=== PATIENT | female | born 1960 | race African-American/Black ===

== ENCOUNTER → 2021-11-22 | Outpatient (CLI) | payer MEDICARE, MEDICAID ==
[~2021-11-22] MED LIST: AMLO5TAB OR; DICL0.1S7 TOP; IMIT100T OR; LIDO5DIS TD; LIPI10TA OR; LYRI75CA OR; VICO5TAB PO; VOLT1GEL EXT
== END ==
LOC: M RAD 12:23
PROVIDERS: ATTEND Physician Assistant
DX: E04.1 Nontoxic single thyroid nodule (principal)

== ENCOUNTER → 2022-04-13 | Outpatient (REF) | payer MEDICARE, MEDICAID | LOC: M LAB REF 17:22 | PROVIDERS: ATTEND Internal Medicine Endocrinology, Diabetes & Metabolism | DX: E04.2 Nontoxic multinodular goiter (principal) ==

== ENCOUNTER → 2022-07-12 | Outpatient (CLI) | payer MEDICARE, MEDICAID | LOC: M RAD 11:05 | PROVIDERS: ATTEND Family Medicine Addiction Medicine | DX: M54.50 Low back pain, unspecified (principal) ==

== ENCOUNTER → 2022-08-09 | Outpatient (CLI) | payer MEDICARE, MEDICAID ==
[~2022-08-09] MED LIST changes: +ISOVUE-370 76% 100ML VIAL As Ordered ONE
== END ==
LOC: M RAD 10:02
PROVIDERS: ATTEND Otolaryngology
DX: R22.1 Localized swelling, mass and lump, neck (principal)
CPT/HCPCS: 70491; Q9967

== ENCOUNTER → 2022-09-11 | Outpatient (REF) | payer MEDICARE, MEDICAID ==
[~2022-09-11] MED LIST changes: -ISOVUE-370 76% 100ML VIAL As Ordered ONE
[2022-09-11 14:03] LABS: FOLATE 21.6 NG/ML (>5.4); THYROID STIMULATING HORMONE 1.762 uIU/ML (0.55-4.78); TOTAL 25(OH) VITAMIN D 9.7 NG/ML (20.0-100.0)
[2022-09-11 14:04] LABS: VITAMIN B12 LEVEL 623 PG/ML (211-911)
[2022-09-11 14:28] LABS: HIV 1&2 SCREEN ATELLICA NEGATIVE (NEGATIVE)
[2022-09-11 14:34] LABS: ALBUMIN 4.6 G/DL (3.2-5.2); ALKALINE PHOSPHATASE 124 U/L (46-116); ALT/SGPT 12 U/L (7.0-40); AST/SGOT 15 U/L (<34); BILIRUBIN,TOTAL 0.5 MG/DL (0.3-1.2); BLOOD UREA NITROGEN 16 MG/DL (9-23); CALCIUM LEVEL 9.7 MG/DL (8.3-10.6); CARBON DIOXIDE LEVEL 25 MMOL/L (20-31); CHLORIDE LEVEL 105 MMOL/L (98-107); CHOLESTEROL LEVEL 216 MG/DL (<200); CHOLESTEROL RISK RATIO 3.03 (<5); CREATININE FOR GFR 0.82 MG/DL (0.55-1.30); GLOMERULAR FILTRATION RATE > 60.0 (>45); GLUCOSE, FASTING 89 MG/DL (74-106); HDL CHOLESTEROL 71.1 MG/DL (>40); LDL CHOLESTEROL 132.7 MG/DL (<100); NON-HDL-C 144.9 MG/DL; POTASSIUM SERUM 3.8 MMOL/L (3.5-5.1); SODIUM LEVEL 138 MMOL/L (136-145); TOTAL PROTEIN 8.3 G/DL (5.7-8.2); TRIGLYCERIDES LEVEL 61 MG/DL (<150)
== END ==
LOC: M LAB REF 12:24
PROVIDERS: ATTEND Family Medicine Addiction Medicine
DX: Z13.228 Encounter for screening for other metabolic disorders (principal); Z11.4 Encounter for screening for human immunodeficiency virus [HIV]; I10 Essential (primary) hypertension

== ENCOUNTER → 2022-12-21 | Outpatient (REF) | payer MEDICARE, MEDICAID ==
[2022-12-21 18:27] LABS: ALBUMIN 4.3 G/DL (3.2-5.2); ALKALINE PHOSPHATASE 122 U/L (46-116); ALT/SGPT 15 U/L (7.0-40); AST/SGOT 21 U/L (<34); BILIRUBIN,TOTAL 0.5 MG/DL (0.3-1.2); BLOOD UREA NITROGEN 15 MG/DL (9-23); CALCIUM LEVEL 9.9 MG/DL (8.3-10.6); CARBON DIOXIDE LEVEL 29 MMOL/L (20-31); CHLORIDE LEVEL 101 MMOL/L (98-107); CHOLESTEROL LEVEL 206 MG/DL (<200); CHOLESTEROL RISK RATIO 2.83 (<5); CREATININE FOR GFR 0.82 MG/DL (0.55-1.30); GLOMERULAR FILTRATION RATE > 60.0 (>45); GLUCOSE, FASTING 80 MG/DL (74-106); HDL CHOLESTEROL 72.7 MG/DL (>40); LDL CHOLESTEROL 115.3 MG/DL (<100); NON-HDL-C 133.3 MG/DL; SODIUM LEVEL 139 MMOL/L (136-145); THYROID STIMULATING HORMONE 4.284 uIU/ML (0.55-4.78); TRIGLYCERIDES LEVEL 90 MG/DL (<150)
== END ==
LOC: M LAB REF 17:31
PROVIDERS: ATTEND Family Medicine Addiction Medicine
DX: I10 Essential (primary) hypertension (principal)

== ENCOUNTER → 2023-02-13 | Outpatient (REF) | payer MEDICARE, MEDICAID | LOC: M SFHCWAGY 13:25 | PROVIDERS: ATTEND Nurse Practitioner Family | DX: Z12.4 Encounter for screening for malignant neoplasm of cervix (principal) | CPT/HCPCS: 87624; G0123 ==

== ENCOUNTER → 2023-02-14 | Outpatient (CLI) | payer MEDICARE, MEDICAID ==
[~2023-02-14] MED LIST changes: +ISOVUE-370 76% 100ML VIAL As Ordered ONE
== END ==
LOC: M RAD 08:52
PROVIDERS: ATTEND Otolaryngology
DX: K11.20 Sialoadenitis, unspecified (principal); E04.2 Nontoxic multinodular goiter; J34.9 Unspecified disorder of nose and nasal sinuses
CPT/HCPCS: 70491; Q9967

== ENCOUNTER → 2023-06-11 | Outpatient (REF) | payer MEDICARE, MEDICAID ==
[~2023-06-11] MED LIST changes: -ISOVUE-370 76% 100ML VIAL As Ordered ONE
[2023-06-11 13:15] LABS: ALBUMIN 4.2 G/DL (3.2-5.2); ALKALINE PHOSPHATASE 112 U/L (46-116); ALT/SGPT 14 U/L (7.0-40); AST/SGOT 22 U/L (<34); BILIRUBIN,TOTAL 0.5 MG/DL (0.3-1.2); BLOOD UREA NITROGEN 10 MG/DL (9-23); CALCIUM LEVEL 9.8 MG/DL (8.3-10.6); CARBON DIOXIDE LEVEL 30 MMOL/L (20-31); CHLORIDE LEVEL 104 MMOL/L (98-107); CHOLESTEROL LEVEL 200 MG/DL (<200); CHOLESTEROL RISK RATIO 2.64 (<5); CREATININE FOR GFR 0.72 MG/DL (0.55-1.30); GLOMERULAR FILTRATION RATE > 60.0 (>45); GLUCOSE, FASTING 87 MG/DL (74-106); HDL CHOLESTEROL 75.7 MG/DL (>40); LDL CHOLESTEROL 108.7 MG/DL (<100); NON-HDL-C 124.3 MG/DL; POTASSIUM SERUM 3.9 MMOL/L (3.5-5.1); SODIUM LEVEL 139 MMOL/L (136-145); TOTAL PROTEIN 7.8 G/DL (5.7-8.2); TRIGLYCERIDES LEVEL 78 MG/DL (<150)
[2023-06-11 13:16] LABS: THYROID STIMULATING HORMONE 4.148 uIU/ML (0.55-4.78)
== END ==
LOC: M LAB REF 12:07
PROVIDERS: ATTEND Family Medicine Addiction Medicine
DX: E78.5 Hyperlipidemia, unspecified (principal)

== ENCOUNTER → 2023-08-24 | Outpatient (REF) | payer MEDICARE, MEDICAID ==
[2023-08-24 12:52] LABS: BASO # 0.1 10^3/uL (0.0-0.2); BASO % 0.7 % (0.0-1.0); EOS # 0.4 10^3/uL (0.0-0.5); EOS % 5.9 % (0.0-3.0); HEMATOCRIT 35.5 % (36.0-47.0); HEMOGLOBIN 11.5 g/dl (12.0-15.5); LYMPH # 2.2 10^3/uL (1.5-5.0); LYMPH % 29.2 % (24.0-44.0); MEAN CORPUSCULAR HEMOGLOBIN 29.3 pg (27.0-33.0); MEAN CORPUSCULAR HGB CONC 32.4 g/dl (32.0-36.5); MEAN CORPUSCULAR VOLUME 90.3 fl (80.0-96.0); MONO # 0.5 10^3/uL (0.0-0.8); MONO % 7.2 % (2.0-8.0); NEUTROPHILS # 4.2 10^3/uL (1.5-8.5); NEUTROPHILS % 56.9 % (36.0-66.0); PLATELET COUNT, AUTOMATED 328 10^3/uL (150-450); RED BLOOD COUNT 3.93 10^6/uL (4.00-5.40); WHITE BLOOD COUNT 7.4 10^3/uL (4.0-10.0)
[2023-08-24 13:32] LABS: ALBUMIN 4.2 G/DL (3.2-5.2); ALKALINE PHOSPHATASE 113 U/L (46-116); ALT/SGPT 23 U/L (7.0-40); AST/SGOT 24 U/L (<34); BILIRUBIN,TOTAL 0.5 MG/DL (0.3-1.2); BLOOD UREA NITROGEN 10 MG/DL (9-23); CALCIUM LEVEL 10.4 MG/DL (8.3-10.6); CARBON DIOXIDE LEVEL 32 MMOL/L (20-31); CHLORIDE LEVEL 102 MMOL/L (98-107); CHOLESTEROL LEVEL 190 MG/DL (<200); CHOLESTEROL RISK RATIO 2.34 (<5); CREATININE FOR GFR 0.64 MG/DL (0.55-1.30); FREE T4 1.23 NG/DL (0.89-1.76); GLOMERULAR FILTRATION RATE > 60.0 (>45); GLUCOSE, FASTING 87 MG/DL (74-106); HDL CHOLESTEROL 81.1 MG/DL (>40); LDL CHOLESTEROL 98.3 MG/DL (<100); NON-HDL-C 108.9 MG/DL; POTASSIUM SERUM 3.8 MMOL/L (3.5-5.1); SODIUM LEVEL 139 MMOL/L (136-145); THYROID STIMULATING HORMONE 2.581 uIU/ML (0.55-4.78); TOTAL PROTEIN 7.9 G/DL (5.7-8.2); TRIGLYCERIDES LEVEL 53 MG/DL (<150); VITAMIN B12 LEVEL 818 PG/ML (211-911)
== END ==
LOC: M LAB REF 11:55
PROVIDERS: ATTEND Family Medicine Addiction Medicine
DX: R94.6 Abnormal results of thyroid function studies (principal); R20.2 Paresthesia of skin; Z79.899 Other long term (current) drug therapy

== ENCOUNTER → 2023-09-05 | Outpatient (REF) | payer MEDICARE, MEDICAID | LOC: M LAB REF 12:29 | PROVIDERS: ATTEND Family Medicine Addiction Medicine | DX: D64.9 Anemia, unspecified (principal); E55.9 Vitamin D deficiency, unspecified ==

== ENCOUNTER → 2023-09-26 | Outpatient (CLI) | payer MEDICARE, MEDICAID | LOC: M RAD 15:19 | PROVIDERS: ATTEND Otolaryngology | DX: K11.20 Sialoadenitis, unspecified (principal) ==

== ENCOUNTER → 2023-12-22 | Outpatient (CLI) | payer MEDICARE, MEDICAID | LOC: M RAD 09:54 | PROVIDERS: ATTEND Family Medicine Addiction Medicine | DX: M47.896 Other spondylosis, lumbar region (principal) ==

== ENCOUNTER → 2024-01-30 | Outpatient (REF) | payer MEDICARE, MEDICAID ==
[2024-01-30 19:22] LABS: BASO # 0.1 10^3/uL (0.0-0.2); BASO % 0.5 % (0.0-1.0); EOS # 0.4 10^3/uL (0.0-0.5); EOS % 3.6 % (0.0-3.0); HEMATOCRIT 33.3 % (36.0-47.0); HEMOGLOBIN 10.9 g/dl (12.0-15.5); LYMPH # 1.8 10^3/uL (1.5-5.0); LYMPH % 18.8 % (24.0-44.0); MEAN CORPUSCULAR HEMOGLOBIN 29.1 pg (27.0-33.0); MEAN CORPUSCULAR HGB CONC 32.7 g/dl (32.0-36.5); MONO # 0.8 10^3/uL (0.0-0.8); MONO % 8.1 % (2.0-8.0); NEUTROPHILS # 6.7 10^3/uL (1.5-8.5); NEUTROPHILS % 68.7 % (36.0-66.0); PLATELET COUNT, AUTOMATED 359 10^3/uL (150-450); RED BLOOD COUNT 3.74 10^6/uL (4.00-5.40); WHITE BLOOD COUNT 9.7 10^3/uL (4.0-10.0)
[2024-01-30 19:32] LABS: ERYTHROCYTE SEDIMENTATION RATE 37 mm/hr (0-30)
[2024-01-30 19:43] LABS: URIC ACID 4.8 MG/DL (3.1-7.8)
[2024-01-30 19:47] LABS: C REACTIVE PROTEIN QUANTITATIV < 0.40 MG/DL (<1.0)
[2024-01-30 19:48] LABS: RHEUMATOID FACTOR QUANT 7.6 IU/ML (<14)
[2024-01-30 19:49] LABS: ALBUMIN 4.6 G/DL (3.2-5.2); ALKALINE PHOSPHATASE 113 U/L (46-116); ALT/SGPT 16 U/L (7.0-40); AST/SGOT 23 U/L (<34); BILIRUBIN,TOTAL 0.6 MG/DL (0.3-1.2); BLOOD UREA NITROGEN 13 MG/DL (9-23); CALCIUM LEVEL 10.8 MG/DL (8.3-10.6); CARBON DIOXIDE LEVEL 32 MMOL/L (20-31); CHLORIDE LEVEL 102 MMOL/L (98-107); CREATININE FOR GFR 0.81 MG/DL (0.55-1.30); GLOMERULAR FILTRATION RATE > 60.0 (>45); GLUCOSE, FASTING 81 MG/DL (74-106); POTASSIUM SERUM 3.5 MMOL/L (3.5-5.1); SODIUM LEVEL 140 MMOL/L (136-145); TOTAL PROTEIN 8.6 G/DL (5.7-8.2)
[2024-02-01 15:07] LABS: ANA PATTERN Cytoplasmic (NEGATIVE); ANA SCREEN, IFA POSITIVE (NEGATIVE); ANA TITER 1:40 titer (<1:40)
[2024-02-01 23:47] LABS: SSA SJOGRENS A <1.0 NEG AI (<1.0 NEG); SSB SJOGRENS B <1.0 NEG AI (<1.0 NEG)
[2024-02-04 23:37] LABS: CYCLIC CITRULLINATED PEPTIDE < 16 UNITS (<20)
== END ==
LOC: M LAB REF 16:39
PROVIDERS: ATTEND Family Medicine Addiction Medicine
DX: M35.00 Sjogren syndrome, unspecified (principal)

== ENCOUNTER → 2024-07-16 | Outpatient (CLI) | payer MEDICARE, MEDICAID | LOC: M RAD 12:14 | PROVIDERS: ATTEND Otolaryngology | DX: K11.20 Sialoadenitis, unspecified (principal) ==

== ENCOUNTER → 2024-12-01 | Outpatient (REF) | payer MEDICARE, MEDICAID ==
[2024-12-01 18:48] LABS: FREE T4 1.29 NG/DL (0.89-1.76)
[2024-12-01 18:49] LABS: TOTAL 25(OH) VITAMIN D 112.1 NG/ML (20.0-100.0)
[2024-12-01 18:54] LABS: ALT/SGPT 17.0 U/L (7.0-40); AST/SGOT 37.0 U/L (<34); CALCIUM LEVEL 10.3 MG/DL (8.3-10.6); CARBON DIOXIDE LEVEL 27.0 MMOL/L (20-31); CHLORIDE LEVEL 100.0 MMOL/L (98-107); CHOLESTEROL LEVEL 227.0 MG/DL (<200); CHOLESTEROL RISK RATIO 2.68 (<5); CREATININE FOR GFR 0.82 MG/DL (0.55-1.30); GLOMERULAR FILTRATION RATE 78.8 (>45); LDL CHOLESTEROL 126.1 MG/DL (<100); NON-HDL-C 142.5 MG/DL; POTASSIUM SERUM 4.1 MMOL/L (3.5-5.1); SODIUM LEVEL 144.0 MMOL/L (136-145); TRIGLYCERIDES LEVEL 82.0 MG/DL (<150)
== END ==
LOC: M LAB REF 17:36
PROVIDERS: ATTEND Family Medicine Addiction Medicine
DX: I10 Essential (primary) hypertension (principal); E55.9 Vitamin D deficiency, unspecified

== ENCOUNTER → 2025-02-11 | Outpatient (REF) | payer MEDICARE, MEDICAID ==
[2025-02-11 15:52] LABS: CALCIUM LEVEL 10.6 MG/DL (8.3-10.6); CARBON DIOXIDE LEVEL 28.0 MMOL/L (20-31); CHLORIDE LEVEL 102.0 MMOL/L (98-107); CHOLESTEROL LEVEL 227.0 MG/DL (<200); CHOLESTEROL RISK RATIO 2.68 (<5); CREATININE FOR GFR 0.74 MG/DL (0.55-1.30); GLOMERULAR FILTRATION RATE 89.2 (>45); LDL CHOLESTEROL 131.1 MG/DL (<100); NON-HDL-C 142.3 MG/DL; POTASSIUM SERUM 3.7 MMOL/L (3.5-5.1); SODIUM LEVEL 139.0 MMOL/L (136-145); TRIGLYCERIDES LEVEL 56.0 MG/DL (<150)
[2025-02-11 15:54] LABS: TOTAL 25(OH) VITAMIN D 66.7 NG/ML (20.0-100.0)
== END ==
LOC: M LAB REF 14:34
PROVIDERS: ATTEND Family Medicine Addiction Medicine
DX: E55.9 Vitamin D deficiency, unspecified (principal); Z68.23 Body mass index [BMI] 23.0-23.9, adult

== ENCOUNTER → 2025-03-17 | Outpatient (REF) | payer MEDICARE, MEDICAID ==
[2025-03-17 15:45] LABS: APPEARANCE, URINE HAZY (CLEAR); BACTERIA, URINE AUTO NEGATIVE (NEGATIVE); BILIRUBIN, URINE AUTO NEGATIVE (NEGATIVE); BLOOD, URINE BLOOD NEGATIVE (NEGATIVE); GLUCOSE, URINE (UA) AUTO NEGATIVE (NEGATIVE); KETONE, URINE AUTO NEGATIVE (NEGATIVE); LEUKOCYTE ESTERASE, URINE AUTO NEGATIVE (NEGATIVE); MUCUS, URINE SMALL (NEGATIVE); NITRITE, URINE AUTO NEGATIVE (NEGATIVE); PROTEIN, URINE AUTO 1+ mg/dL (NEGATIVE); RBC, URINE AUTO 1 /HPF (0-3); SPECIFIC GRAVITY URINE AUTO 1.017 (1.002-1.035); SQUAMOUS EPITHELIAL CELL UR AU 0 /HPF (0-6); UROBILINOGEN, URINE AUTO 0.2 mg/dL (0.0-2.0); WBC, URINE AUTO 3 /HPF (0-3)
[2025-03-17 16:03] LABS: C REACTIVE PROTEIN QUANTITATIV < 0.50 MG/DL (<1.0); COMPLEMENT C4 41.8 MG/DL (12-36)
[2025-03-18 16:55] LABS: TOTAL PROTEIN,RANDOM URINE 45.7 MG/DL (0.0-14.0)
== END ==
LOC: M SFHCRHEU 10:19
PROVIDERS: ATTEND Internal Medicine
DX: R76.89 Other specified abnormal immunological findings in serum (principal); Z79.899 Other long term (current) drug therapy

== ENCOUNTER → 2025-04-10 | Outpatient (REF) | payer MEDICARE, MEDICAID | LOC: M LAB REF 12:24 | PROVIDERS: ATTEND Family Medicine Addiction Medicine | DX: R25.2 Cramp and spasm (principal) ==